=== PATIENT | male | born 1955 | race Caucasian/White ===

== ENCOUNTER 2019-01-26 13:15 | Emergency (ER) | payer BC, OTHER ==
--- NOTE | 2019-01-26 13:38 | ERPHSYRPT ---
- History of Present Illness Time Seen by Provider: 01/26/19 13:20 Source: patient, family Exam Limitations: no limitations Physician History: Accidently got Oatey primer in his left eye. Pt washed it at home. Some went on his head. C/O SLightly blurred vision and burning in left eye No other symptoms Timing/Duration: today Location: left eye Severity: mild Apparent Injury: possibly Associated Symptoms: pain, burning, sensitivity to light, redness, foreign body sensation, blurred vision Chemical Exposure: Yes (Oatey Primer) Treatment at Time of Chemical Exposure: eye wasg Trauma: No Welding Arc/Tanning Bed Exposure: No Allergies/Adverse Reactions: No Known Drug Allergies Allergy (Unverified 01/03/12 04:55) Home Medications: Aspir 81 81 mg PO DAILY 01/03/12 [History] Furosemide 40 mg 40 mg PO DAILY 01/03/12 [History] Insulin Glargine [Lantus Insulin] 25 unit SQ HS 01/03/12 [History] Levothyroxine Sodium [Synthroid] 125 mg PO DAILY 01/03/12 [History] Lexapro 10 MG 10 mg PO DAILY 01/03/12 [History] Metformin HCl Xr 500 mg [Glucophage XR 500 MG] 1,000 mg PO DAILY 01/03/12 [ History] Quinapril HCl 10 mg [Accupril 10MG Tablet] 40 mg PO DAILY 01/03/12 [History] Simvastatin 10 mg [Zocor 10MG] 10 mg PO DAILY 01/03/12 [History] Tricor 140 mg PO DAILY 01/03/12 [History] Verapamil HCl [Verapamil ER] 240 mg PO DAILY 01/03/12 [History] Empagliflozin [Jardiance] 25 mg PO DAILY 01/26/19 [History] Trazodone HCl 100 mg PO HS 01/26/19 [History] Hx Tetanus, Diphtheria Vaccination/Date Given: Yes Hx Influenza Vaccination/Date Given: Yes Hx Pneumococcal Vaccination/Date Given: Yes - Review of Systems Constitutional: No Fever, No Chills Eyes: Eye Pain, Eye Redness, Photophobia, Tearing, Foreign Body Sensation Ears, Nose, & Throat: No Symptoms Respiratory: No Cough, No Dyspnea Cardiac: No Chest Pain, No Edema, No Syncope Abdominal/Gastrointestinal: No Abdominal Pain, No Nausea, No Vomiting, No Diarrhea Genitourinary Symptoms: No Dysuria Musculoskeletal: No Back Pain, No Neck Pain Skin: No Rash Neurological: No Dizziness, No Focal Weakness, No Sensory Changes Psychological: No Symptoms Endocrine: No Symptoms All Other Systems: Reviewed and Negative - Past Medical History Pertinent Past Medical History: Yes (DM, heart disease, HTN) Cardiac History: Other Respiratory History: Asthma Endocrine Medical History: Diabetes Type I Musculoskeletal History: No Pertinent History GI Medical History: No Pertinent History History: No Pertinent History Psycho-Social History: Depression Other Medical History: PERICARDIUM STRIPING - Past Surgical History Past Surgical History: Yes Musculoskeletal: Other Other Surgical History: LAPAROSCOPIC KNEE SURGERY - Social History Smoking Status: Never smoker Exposure to second hand smoke: Yes Drug Use: none Patient Lives Alone: No (lives at home with ) - Nursing Vital Signs Nursing Vital Signs: Initial Vital Signs Temperature 98.6 F 01/26/19 13:50 Pulse Rate 58 L 01/26/19 13:50 Respiratory Rate 16 01/26/19 13:50 Blood Pressure 179/97 01/26/19 13:50 O2 Sat by Pulse Oximetry 94 L 01/26/19 13:50 Pain Scale Pain Intensity 6 - Physical Exam General Appearance: no apparent distress Vision Acuity Degree Evaluation Phase: Uncorrected Vision Acuity Right Eye: See Nurses notes Vision Acuity Left Eye: See Nurses notes Eye Exam: left eye: conjunctival inflammation, corneal abrasion, erythema, bilateral eye: PERRL, EOMI Ears, Nose, Throat Exam: normal ENT inspection, pharynx normal Neck Exam: normal inspection, non-tender Respiratory Exam: normal breath sounds Cardiovascular Exam: regular rate/rhythm, normal heart sounds Gastrointestinal Exam: soft, normal bowel sounds Extremity Exam: normal inspection Neurologic: alert, oriented x 3, cooperative, radio equipment repairer II-XII nml as tested, normal mood/affect, nml cerebellar function, nml station & gait, sensation nml Skin Exam: normal color SpO2 Interpretation: normal Procedures - Eye Procedure Tetracaine Drops Administered: Yes Remaining Material after FB Removal: none Progress: better. Eye wash and complete Decon done in ER - Course Nursing assessment & vital signs reviewed: Yes Ordered Tests: Medication Summary Discontinued Medications Generic Name Dose Route Start Last Admin Trade Name Freq PRN Reason Stop Dose Admin Eye Irrigation Solution Confirm 01/26/19 13:59 Eye-Stream Solution Administered 01/26/19 14:00 Dose 30 ml .ROUTE .STK-MED ONE Eye Irrigation Solution 15 ml 01/26/19 14:00 01/26/19 14:05 Eye-Stream Solution OP 01/26/19 14:01 30 ml STAT ONE Administration Fluorescein Sodium Confirm 01/26/19 13:59 Guvfq-U-Rmsmp/Ful-Francisco Administered 01/26/19 14:00 Dose 2 mg OP .STK-MED ONE Fluorescein Sodium 2 mg 01/26/19 13:59 01/26/19 14:05 Ioxfa-E-Jnhzv/Ful-Francisco OP 01/26/19 14:00 2 mg STAT ONE Administration Tetracaine HCl 4 ml 01/26/19 13:46 01/26/19 14:05 Tetracaine 0.5% Steri-Unit Aliya OP 01/26/19 13:47 4 ml STAT STA Administration Tetracaine HCl Confirm 01/26/19 13:59 Tetracaine 0.5% Steri-Unit Aliya Administered 01/26/19 14:00 Dose 4 ml OP .STK-MED ONE - Progress Progress: improved Progress Note: I called [place] poison control and talked to Jose Elias. hhe told me that the most specific treatment is required except eye contamination and symptomatic treatment. 01/26/19 13:38 Discussed with : Other Will see patient in: office Counseled pt/family regarding: need for follow-up (See [facility]) - Departure Departure Disposition: Home Clinical Impression: Chemical insult, eye, Corneal abrasion, left Condition: Good Critical Care Time: No Referrals: DARRIUS GÓMEZ RN HEMO [facility]IALYS[facility] [Primary Care Provider] - Instructions: Foreign Body in Eye (DC) Additional Instructions: See [facility] Prescriptions: Erythromycin Base 3.5 gm [Erythromycin 3.5 GM OPHTH.] 1 applic OP QID 3 Days #1 tube Gentamicin Sulfate Eye Drops [Garamycin 0.3% Ophth Aliya] 2 ml OP QID 3 Days bottle
[2019-01-26] MEDS ORDERED: TETRACAINE 0.5% STERI-UNIT SOL OP STA (13:46)
[2019-01-26 13:51] VITALS: PULSE 58; O2SAT 94
[2019-01-26] MEDS ORDERED: Eye-Stream Solution ONE (13:59)
[2019-01-26] MEDS ORDERED: TETRACAINE 0.5% STERI-UNIT SOL OP ONE (13:59)
[2019-01-26] MEDS ORDERED: Fluor-I-Strip/Ful-Flo OP ONE ×2 (13:59)
[2019-01-26] MEDS ORDERED: Eye-Stream Solution OP ONE (14:00)
[2019-01-26 15:02] VITALS: BP 125/65
== END 2019-01-26 15:08 | disposition home or self-care (01) ==
LOC: ED 13:15
DX: T15.02XA Foreign body in cornea, left eye, initial encounter (principal); W45.8XXA Other foreign body or object entering through skin, initial encounter
CPT/HCPCS: 99283; A9270-GY